=== PATIENT | male | born 1955 | race Caucasian/White ===

== ENCOUNTER 2017-09-26 17:44 | Inpatient (IN) | payer BC ==
--- NOTE | 2017-09-26 17:47 | PDOC ---
Rapid Medical Evaluation Time Seen by Provider: 09/26/17 17:46 Medical Evaluation: Allergies Allergy/AdvReac Type Severity Reaction Status Date / Time No Known Allergies Allergy Verified 09/26/17 17:47 09/26/17 17:47 62 year old male history of anemia (previously on iron), former smoker, hiatal hernia presenting with dyspnea, found to have Hgb 6.2 on outpatient labs. Denies hematochezia, other abnormal bleeding. Sent for admission to Dr. Metz with consult for Dr. Velásquez for endoscopy. Alert, oriented, no distress. RRR, S1/S2. Lungs CTAB. Plan: -EKG -CXR -Labs including CBC, T&S -To Main ED for further evaluation
--- NOTE | 2017-09-26 18:22 | PDOC ---
*Physical Exam - Vital Signs Last Vital Signs Temp Pulse Resp BP Pulse Ox 98.9 F 87 16 133/82 99 09/26/17 17:48 09/26/17 17:48 09/26/17 17:48 09/26/17 17:48 09/26/17 17:48 - Physical Exam Comments: 09/26/17 18:22 The patient was examined by [FREDIS Barajas] under my direct supervision. I personally evaluated the patient. I concur with the above findings and the plan of care. ED Treatment Course - LABORATORY CBC & Chemistry Diagram: 09/28/17 05:35 09/28/17 05:35 *DC/Admit/Observation/Transfer Diagnosis at time of Disposition: Anemia, Blood transfusion during current hospitalization - Discharge Dispostion Disposition: HOME Condition at time of disposition: Improved - Referrals - Patient Instructions - Post Discharge Activity
--- NOTE | 2017-09-26 18:28 | PDOC ---
History of Present Illness - General Chief Complaint: Blood Transfusion Stated Complaint: PCP SENT Time Seen by Provider: 09/26/17 17:46 History Source: Patient Exam Limitations: No Limitations - History of Present Illness Initial Comments: 09/26/17 18:28 Patient is a 62-year-old male with past medical history of iron deficiency anemia, who presents to the emergency department today after receiving a phone call from his primary care doctor that he had a low blood count. Patient states that he has been feeling short of breath recently and cannot walk more than 10 feet without getting short of breath. Denies hematochezia, melena, palpitations , fevers, chills, nausea, vomiting and diarrhea. Past History - Travel Traveled outside of the country in the last 30 days: No Close contact w/someone who was outside of country & ill: No - Past Medical History Allergies/Adverse Reactions: Allergies Allergy/AdvReac Type Severity Reaction Status Date / Time No Known Allergies Allergy Verified 09/26/17 17:47 Home Medications: Ambulatory Orders Omeprazole 40 mg PO DAILY 09/26/17 Anemia: Yes COPD: No - Suicide/Smoking/Psychosocial Hx Smoking History: Former smoker Have you smoked in the past 12 months: No If you are a former smoker, when did you quit?: 1991 Information on smoking cessation initiated: No Hx Alcohol Use: No Drug/Substance Use Hx: No Substance Use Type: None Review of Systems - Review of Systems Able to Perform ROS?: Yes Comments:: 09/26/17 18:36 CONSTITUTIONAL: Absent: fever, chills, diaphoresis, generalized weakness, malaise, loss of appetite HEENT: Absent: rhinorrhea, nasal congestion, throat pain, throat swelling, difficulty swallowing, mouth swelling, ear pain, eye pain, visual Changes CARDIOVASCULAR: Absent: chest pain, loss of consciousness, palpitations, irregular heart rate, peripheral edema RESPIRATORY: Present: shortness of breath Absent: cough, dyspnea with exertion, orthopnea, wheezing, stridor, hemoptysis GASTROINTESTINAL: Absent: abdominal pain, abdominal distension, nausea, vomiting, diarrhea, constipation, melena, hematochezia GENITOURINARY: Absent: dysuria, frequency, urgency, hesitancy, hematuria, flank pain, genital pain MUSCULOSKELETAL: Absent: myalgia, arthralgia, joint swelling SKIN: Absent: rash, itching, pallor HEMATOLOGIC/IMMUNOLOGIC: Present: iron deficiency anemia Absent: easy bleeding, easy bruising, lymphadenopathy, frequent infections ENDOCRINE: Absent: unexplained weight gain, unexplained weight loss, heat intolerance, cold intolerance NEUROLOGIC: Absent: headache, focal weakness or paresthesias, dizziness, unsteady gait, seizure, mental status changes, bladder or bowel incontinence PSYCHIATRIC: Absent: anxiety, depression, suicidal or homicidal ideation, hallucinations. Is the patient limited Occitan proficient: No *Physical Exam - Vital Signs Last Vital Signs Temp Pulse Resp BP Pulse Ox 98.9 F 87 16 133/82 99 09/26/17 17:48 09/26/17 17:48 09/26/17 17:48 09/26/17 17:48 09/26/17 17:48 - Physical Exam Comments: 09/26/17 18:41 GENERAL: Well developed, well nourished. Awake and alert. No acute distress. HEENT: Normocephalic, atraumatic. PERRLA, EOMI. Conjunctival pallor. Sclera are non- icteric. Moist mucous membranes. Oropharynx is clear. NECK: Supple. Full ROM. No JVD. Carotid pulses 2+ and symmetric, without bruits. No thyromegaly. No lymphadenopathy. CARDIOVASCULAR: Regular rate and rhythm. No murmurs, rubs, or gallops. Distal pulses are 2+ and symmetric. PULMONARY: No evidence of respiratory distress. Lungs clear to auscultation bilaterally. No wheezing, rales or rhonchi. ABDOMINAL: Soft. Non-tender. Non-distended. No rebound or guarding. No organomegaly. Normoactive bowel sounds. MUSCULOSKELETAL Normal range of motion at all joints. No bony deformities or tenderness. No CVA tenderness. EXTREMITIES: No cyanosis. No clubbing. No edema. No calf tenderness. SKIN: Pale Warm and dry. Normal capillary refill. No rashes. No jaundice. NEUROLOGICAL: Alert, awake, appropriate. Cranial nerves 2-12 intact. No deficits to light touch and temperature in face, upper extremities and lower extremities. No motor deficits in the in face, upper extremities and lower extremities. Normoreflexic in the upper and lower extremities. Normal speech. Toes are down- going bilaterally. Gait is normal without ataxia. PSYCHIATRIC: Cooperative. Good eye contact. Appropriate mood and affect. ED Treatment Course - LABORATORY CBC & Chemistry Diagram: 09/27/17 06:30 09/26/17 18:35 Medical Decision Making - Medical Decision Making 09/26/17 18:41 Patient is a 62-year-old male past medical history of iron deficiency anemia, who presents emergency Department with low H&H as reported by his primary care doctor. Reported H&H is 6.2. Presuming patient is going to need at least two transfusions. Dr. Marshall would like Dr. Metz for admission and Dr. Ceron for GI consult. Patient is currently pending labs, CXR, stool occult blood. Sign out given Jing Duron NP 09/26/17 18:56 EKG: Rate 87 bpm normal sinus rhythm. Normal intervals normal axis. No acute ST- T wave changes. *DC/Admit/Observation/Transfer Diagnosis at time of Disposition: Blood transfusion during current hospitalization Anemia Qualifiers: Anemia type: folate deficiency Folate deficiency anemia type: unspecified folate deficiency Qualified Code(s): D52.9 - Folate deficiency anemia, unspecified - Referrals - Patient Instructions - Post Discharge Activity
[2017-09-26 18:52] LABS: EOS % 1.4 % (0-4.5); HEMATOCRIT 18.7 % (35.4-49); LYMPH % 33.5 % (8-40); MCHC 30.8 g/dl (32.0-35.9); MEAN CELL VOLUME 53.5 fl (80-96); MEAN PLT VOLUME 8.7 fl (7.5-11.1); MONO % 10.4 % (3.8-10.2); NEUT % 53.7 % (42.8-82.8); PLATELET COUNT 331 K/MM3 (134-434); RBC 3.49 M/mm3 (4.00-5.60); RDW 20.5 % (11.9-15.9); WHITE BLOOD COUNT 6.1 K/mm3 (4.0-10.0)
[2017-09-26 18:55] LABS: ADD RBC MORPHOLOGY YES; MCH 16.5 pg (25.7-33.7)
[2017-09-26 18:57] LABS: HEMOGLOBIN 5.8 GM/dL (11.7-16.9)
[2017-09-26 19:11] LABS: INR 1.05 (0.82-1.09); PROTHROMBIN TIME (PATIENT) 11.9 SEC (9.7-13.0)
--- NOTE | 2017-09-26 19:12 | PDOC ---
*Physical Exam - Vital Signs Last Vital Signs Temp Pulse Resp BP Pulse Ox 98.9 F 87 16 133/82 99 09/26/17 17:48 09/26/17 17:48 09/26/17 17:48 09/26/17 17:48 09/26/17 17:48 - Physical Exam General Appearance: Yes: Appropriately Dressed Respiratory/Chest: positive: Lungs Clear Cardiovascular: positive: Regular Rate, Systolic Murmur Gastrointestinal/Abdominal: positive: Normal Bowel Sounds, Soft Extremity: positive: Normal Capillary Refill, Normal Inspection Integumentary: positive: Dry, Warm, Pale Neurologic: positive: Fully Oriented, Alert ED Treatment Course - LABORATORY CBC & Chemistry Diagram: 09/26/17 18:35 09/26/17 18:35 - ADDITIONAL ORDERS Additional order review: Laboratory Results 09/26/17 09/26/17 18:50 18:35 Stool Occult Blood Negative Crossmatch See Detail 09/26/17 18:35 RBC 3.49 L MCV 53.5 L MCHC 30.8 L RDW 20.5 H MPV 8.7 Neutrophils % 53.7 Lymphocytes % 33.5 Monocytes % 10.4 H Eosinophils % 1.4 Basophils % 1.0 Medical Decision Making - Medical Decision Making 09/26/17 20:24 Patient signed out to Dr. Govea. patient to be placed under observation status *DC/Admit/Observation/Transfer Diagnosis at time of Disposition: Blood transfusion during current hospitalization Anemia Qualifiers: Anemia type: folate deficiency Folate deficiency anemia type: unspecified folate deficiency Qualified Code(s): D52.9 - Folate deficiency anemia, unspecified - Discharge Dispostion Admit: Yes - Referrals Referrals: Mumtaz Marshall MD [Primary Care Provider] - - Patient Instructions - Post Discharge Activity
[2017-09-26 19:28] LABS: ALBUMIN 3.3 g/dl (3.4-5.0); ALK PHOS 64 U/L (45-117); ANION GAP 6 (8-16); BILIRUBIN,TOTAL 0.2 mg/dL (0.2-1.0); BLOOD UREA NITROGEN 25 mg/dL (7-18); CALCIUM 8.7 mg/dL (8.5-10.1); CHLORIDE 112 mmol/L (98-107); CO2 25 mmol/L (21-32); CREATININE 1.3 mg/dL (0.7-1.3); GLUCOSE,RANDOM 126 mg/dL (74-106); POTASSIUM 4.3 mmol/L (3.5-5.1); SGOT/AST 21 U/L (15-37); SGPT/ALT 22 U/L (12-78); SODIUM 143 mmol/L (136-145)
[2017-09-26 20:13] LABS: ANISOCYTOSIS 1+; PLATELET ESTIMATE ADEQUATE
--- NOTE | 2017-09-26 21:07 | HP ---
CHIEF COMPLAINT: SOB, Weakness PCP: Dr. Mumtaz Marshall HISTORY OF PRESENT ILLNESS: This is a 62 y/o man with a PMH: Iron Deficiency Anemia, GERD. Who presents to the ED sent in by PCP for Hgb 6.2. Patient reports having SOB, weakness x6-8 months, worse over the last several days. His reports that the patient is non-compliant with taking his iron supplements and vitamins. Patient denies melena, hematochezia, hematemesis, hematuria. Patient denies fever, chills, cough, CP, palpitations, AP, N/V/D, constipation, dysuria. ER course was notable for: (1) Hgb 5.8 (2) BUN 25 (3) EKG- nSR no ST or TWI Recent Travel: None PAST MEDICAL HISTORY: See HPI PAST SURGICAL HISTORY: Hemorrhoidectomy Social History: Smoking: Former Alcohol: None Drugs: None Lives with spouse Family History: Both parents alive and well Allergies No Known Allergies Allergy (Verified 09/26/17 17:47) HOME MEDICATIONS: Home Medications Medication Instructions Recorded Omeprazole 20 mg PO DAILY 09/26/17 REVIEW OF SYSTEMS CONSTITUTIONAL: generalized weakness, malaise Absent: fever, chills, diaphoresis, loss of appetite, weight change HEENT: Absent: rhinorrhea, nasal congestion, throat pain, throat swelling, difficulty swallowing, mouth swelling, ear pain, eye pain, visual changes CARDIOVASCULAR: Absent: chest pain, syncope, palpitations, irregular heart rate, lightheadedness , peripheral edema RESPIRATORY: shortness of breath, dyspnea with exertion Absent: cough, orthopnea, wheezing, stridor, hemoptysis GASTROINTESTINAL: Absent: abdominal pain, abdominal distension, nausea, vomiting, diarrhea, constipation, melena, hematochezia GENITOURINARY: Absent: dysuria, frequency, urgency, hesitancy, hematuria, flank pain, genital pain MUSCULOSKELETAL: Absent: myalgia, arthralgia, joint swelling, back pain, neck pain SKIN: Absent: rash, itching, pallor HEMATOLOGIC/IMMUNOLOGIC: Absent: easy bleeding, easy bruising, lymphadenopathy, frequent infections ENDOCRINE: Absent: unexplained weight gain, unexplained weight loss, heat intolerance, cold intolerance NEUROLOGIC: Absent: headache, focal weakness or paresthesias, dizziness, unsteady gait, seizure, mental status changes, bladder or bowel incontinence PSYCHIATRIC: Absent: anxiety, depression, suicidal or homicidal ideation, hallucinations. PHYSICAL EXAMINATION Vital Signs - 24 hr 09/26/17 17:48 Temperature 98.9 F Pulse Rate 87 Respiratory 16 Rate Blood Pressure 133/82 O2 Sat by Pulse 99 Oximetry (%) GENERAL: Awake, alert, and fully oriented, in no acute distress. HEAD: Normal with no signs of trauma. EYES: Pupils equal, round and reactive to light, extraocular movements intact, sclera anicteric, conjunctiva pale, clear. No lid lag. EARS, NOSE, THROAT: Ears normal, nares patent, oropharynx clear without exudates. Moist mucous membranes. NECK: Normal range of motion, supple without lymphadenopathy, JVD, or masses. LUNGS: Breath sounds equal, clear to auscultation bilaterally. No wheezes, and no crackles. No accessory muscle use. HEART: Regular rate and rhythm, normal S1 and S2 without murmur, rub or gallop. ABDOMEN: Soft, nontender, not distended, normoactive bowel sounds, no guarding, no rebound, no masses. No hepatomegaly or splenomegaly. MUSCULOSKELETAL: Normal range of motion at all joints. No bony deformities or tenderness. No CVA tenderness. UPPER EXTREMITIES: 2+ pulses, warm, well-perfused. No cyanosis. No clubbing. No peripheral edema. LOWER EXTREMITIES: 2+ pulses, warm, well-perfused. No calf tenderness. No peripheral edema. NEUROLOGICAL: Cranial nerves II-XII intact. Normal speech. Gait not observed. PSYCHIATRIC: Cooperative. Good eye contact. Appropriate mood and affect. SKIN: Pallor, Warm, dry, normal turgor, no rashes or lesions noted, normal capillary refill. Laboratory Results - last 24 hr 09/26/17 09/26/17 09/26/17 18:35 18:35 18:35 WBC 6.1 RBC 3.49 L Hgb 5.8 L* Hct 18.7 L MCV 53.5 L MCH 16.5 L MCHC 30.8 L RDW 20.5 H Plt Count 331 MPV 8.7 Neutrophils % 53.7 Lymphocytes % 33.5 Monocytes % 10.4 H Eosinophils % 1.4 Basophils % 1.0 Hypochromia 3+ Platelet Estimate Adequate Anisocytosis 1+ Microcytosis 3+ PT with INR 11.90 INR 1.05 Sodium 143 Potassium 4.3 Chloride 112 H Carbon Dioxide 25 Anion Gap 6 L BUN 25 H Creatinine 1.3 Creat Clearance w eGFR 55.94 Random Glucose 126 H Calcium 8.7 Ferritin Total Bilirubin 0.2 AST 21 ALT 22 Alkaline Phosphatase 64 Troponin I Total Protein 7.0 Albumin 3.3 L Vitamin B12 Stool Occult Blood Blood Type Antibody Screen Crossmatch 09/26/17 09/26/17 09/26/17 18:35 18:35 18:35 WBC RBC Hgb Hct MCV MCH MCHC RDW Plt Count MPV Neutrophils % Lymphocytes % Monocytes % Eosinophils % Basophils % Hypochromia Platelet Estimate Anisocytosis Microcytosis PT with INR INR Sodium Potassium Chloride Carbon Dioxide Anion Gap BUN Creatinine Creat Clearance w eGFR Random Glucose Calcium Ferritin 1.902 L Total Bilirubin AST ALT Alkaline Phosphatase Troponin I < 0.02 Total Protein Albumin Vitamin B12 163 L Stool Occult Blood Blood Type O POSITIVE Antibody Screen Negative Crossmatch See Detail 09/26/17 18:50 WBC RBC Hgb Hct MCV MCH MCHC RDW Plt Count MPV Neutrophils % Lymphocytes % Monocytes % Eosinophils % Basophils % Hypochromia Platelet Estimate Anisocytosis Microcytosis PT with INR INR Sodium Potassium Chloride Carbon Dioxide Anion Gap BUN Creatinine Creat Clearance w eGFR Random Glucose Calcium Ferritin Total Bilirubin AST ALT Alkaline Phosphatase Troponin I Total Protein Albumin Vitamin B12 Stool Occult Blood Negative Blood Type Antibody Screen Crossmatch ASSESSMENT/PLAN: This is a 62 y/o man with a PMH: CYNTHIA, GERD, Hiatal Hernia. Placed in Observation for Symptomatic Anemia. Problem List - Problem (1) Anemia Assessment/Plan: - Likely secondary to non-compliance vs tumor - Hgb 5.8 - Will receive PRBCs tonight - Repeat CBC in am - FE, TIBC, Ferritin levels-pending - Stool Occult-negative - Appreciate GI Consult - NPO - Gentle IVF - f/u with Hematology outpatient - Patient counseled on importance of taking Iron, vitamins, patient is amendable - Monitor vitals Code(s): D64.9 - ANEMIA, UNSPECIFIED Qualifiers: Anemia type: folate deficiency Folate deficiency anemia type: unspecified folate deficiency Qualified Code(s): D52.9 - Folate deficiency anemia, unspecified (2) SOB (shortness of breath) Assessment/Plan: - Likely secondary to Anemia - Will transfuse tonight - O2 - Monitor vitals Code(s): R06.02 - SHORTNESS OF BREATH (3) Blood transfusion during current hospitalization Assessment/Plan: - hx CYNTHIA, non-compliant - Hgb 5.8 - Will need PRBCs - Repeat CBC in am Code(s): [id number] - (4) GERD (gastroesophageal reflux disease) Assessment/Plan: - Stable - Continue Omeprazole Code(s): K21.9 - GASTRO-ESOPHAGEAL REFLUX DISEASE WITHOUT ESOPHAGITIS (5) DVT prophylaxis Assessment/Plan: - OOB - SCDs - Hold AC 06/29 Anemia Code(s): [id number] - Visit type - Emergency Visit Emergency Visit: Yes ED Registration Date: 09/26/17 Care time: The patient presented to the Emergency Department on the above date and was hospitalized for further evaluation of their emergent condition. - New Patient This patient is new to me today: Yes Date on this admission: 09/26/17 - Critical Care Critical Care patient: No Hospitalist Screening - Colonoscopy Questionnaire Colonoscopy Questionnaire: Colonoscopy Questionnaire - Patient: 50 - 75 years old and never had a screening colonoscopy: No History of colon or rectal polyps, or CA: No History of IBD, Crohn's disease or UC: No History of abdominal radiation therapy as a child: No - Relative: 1 with colon or rectal CA, or polyps at age 60 or younger: Unknown Colon or rectal CA diagnosed at age 45 or younger: Unknown Multiple relatives with colon or rectal CA: Unknown - Outcome: Screening Result: Negative Screen
[2017-09-27] MEDS ORDERED: PANTOPRAZOLE 40 MG TABLET (FP) PO ONE (00:07)
[2017-09-27 04:47] VITALS: BMI 26.6
[2017-09-27] MEDS ORDERED: DEXTROSE 5%-0.45% SALINE 1,000 ML IV SCH (06:45)
[2017-09-27 07:47] LABS: HEMATOCRIT 24.6 % (35.4-49); HEMOGLOBIN 7.8 GM/dL (11.7-16.9); MCHC 31.7 g/dl (32.0-35.9); MEAN CELL VOLUME 58.8 fl (80-96); MEAN PLT VOLUME 8.4 fl (7.5-11.1); PLATELET COUNT 282 K/MM3 (134-434); RBC 4.18 M/mm3 (4.00-5.60); RDW 27.1 % (11.9-15.9); WHITE BLOOD COUNT 7.2 K/mm3 (4.0-10.0)
[2017-09-27 07:55] LABS: MCH 18.6 pg (25.7-33.7)
[2017-09-27 07:58] LABS: ANION GAP 9 (8-16); BLOOD UREA NITROGEN 23 mg/dL (7-18); CALCIUM 8.8 mg/dL (8.5-10.1); CHLORIDE 111 mmol/L (98-107); CO2 22 mmol/L (21-32); CREATININE 1.1 mg/dL (0.7-1.3); GLUCOSE,RANDOM 91 mg/dL (74-106); POTASSIUM 4.2 mmol/L (3.5-5.1); SODIUM 142 mmol/L (136-145)
--- NOTE | 2017-09-27 09:12 | PN ---
Progress Note, Physician - Current Medication List Current Medications: Active Medications Dextrose/Sodium Chloride (D5-1/2ns -) 1,000 mls @ 75 mls/hr IV ASDIR GREYSON Last Admin: 09/27/17 07:39 Dose: 75 mls/hr - Objective Vital Signs: Vital Signs Temperature 98.8 F 09/27/17 04:30 Pulse Rate 79 09/27/17 04:30 Respiratory Rate 18 09/27/17 04:30 Blood Pressure 138/91 09/27/17 04:30 O2 Sat by Pulse Oximetry (%) 99 09/26/17 23:50 Labs: CBC, BMP 09/27/17 06:30 09/27/17 06:30 INR, PTT INR 1.05 (0.82-1.09) 09/26/17 18:35 Problem List - Problems (1) Anemia Assessment/Plan: - Likely secondary to non-compliance vs tumor - Hgb 5.8 - Will receive PRBCs - Repeat CBC in am - FE, TIBC, Ferritin levels-pending - Stool Occult-negative - Appreciate GI Consult - NPO - Gentle IVF - f/u with Hematology - Patient counseled on importance of taking Iron, vitamins, patient is amendable - Monitor vitals Code(s): D64.9 - ANEMIA, UNSPECIFIED Qualifiers: Anemia type: folate deficiency Folate deficiency anemia type: unspecified folate deficiency Qualified Code(s): D52.9 - Folate deficiency anemia, unspecified (2) DVT prophylaxis Assessment/Plan: - OOB - SCDs - Hold AC 2/2 Anemia Code(s): [id number] - (3) GERD (gastroesophageal reflux disease) Assessment/Plan: - Stable - PPI Code(s): K21.9 - GASTRO-ESOPHAGEAL REFLUX DISEASE WITHOUT ESOPHAGITIS (4) SOB (shortness of breath) Assessment/Plan: - Likely secondary to Anemia - Will transfuse tonight - O2 - Monitor vitals - Echo Code(s): R06.02 - SHORTNESS OF BREATH
[2017-09-27 09:23] LABS: ANISOCYTOSIS 3+; OVALOCYTE 2+; PLATELET ESTIMATE NORMAL; TEAR DROP CELLS 2+
--- NOTE | 2017-09-27 09:46 | CONSULT ---
Consult Consult Specialty:: Hematology - History of Present Illness History of Present Illness: 62-year-old male with past medical history of iron deficiency anemia, who presents to the emergency department today after receiving a phone call from his primary care doctor that he had a low hgb Hematology consulted for anemia. Pt seen and examined. - History Source History Provided By: Patient, Medical Record - Alcohol/Substance Use Hx Alcohol Use: No - Smoking History Smoking history: Former smoker Have you smoked in the past 12 months: No If you are a former smoker, when did you quit?: 1991 Home Medications - Allergies Allergies/Adverse Reactions: Allergies Allergy/AdvReac Type Severity Reaction Status Date / Time No Known Allergies Allergy Verified 09/26/17 17:47 - Home Medications Home Medications: Ambulatory Orders Omeprazole 40 mg PO DAILY 09/26/17 Physical Exam Vital Signs: Vital Signs Temperature 98.8 F 09/27/17 04:30 Pulse Rate 79 09/27/17 04:30 Respiratory Rate 18 09/27/17 04:30 Blood Pressure 138/91 09/27/17 04:30 O2 Sat by Pulse Oximetry (%) 99 09/26/17 23:50 Constitutional: Yes: Well Nourished, No Distress, Calm Eyes: Yes: Conjunctiva Clear HENT: Yes: Atraumatic, Normocephalic Neck: Yes: Supple, Trachea Midline Cardiovascular: Yes: Regular Rate and Rhythm Respiratory: Yes: Regular, CTA Bilaterally Gastrointestinal: Yes: Normal Bowel Sounds, Soft, Abdomen, Obese Edema: No Integumentary: Yes: WNL Labs: CBC, BMP 09/27/17 06:30 09/27/17 06:30 Assessment/Plan Severe Chronic Iron deficiency ( Microcytic/Ferritin of one, FOBT negative) GI f/u MCV in 50s, likely may have a component of hemoglobinopathy for routine anemia w/u PRBCs, post PRBCs, can give Venofer LOS.
--- NOTE | 2017-09-27 11:28 | EKG ---
Test Reason : Blood Pressure : / mmHG Vent. Rate : 087 BPM Atrial Rate : 087 BPM P-R Int : 150 ms QRS Dur : 070 ms QT Int : 328 ms P-R-T Axes : 060 034 049 degrees QTc Int : 394 ms NORMAL SINUS RHYTHM NORMAL ECG WHEN COMPARED WITH ECG OF 11-AUG-2010 09:05, NO SIGNIFICANT CHANGE WAS FOUND Confirmed by DEIRDRE CHAVEZ MD ([id number]) on 09/27/2017 11:27:57 AM Referred By: Confirmed By:EDIRDRE CHAVEZ MD
[2017-09-27] MEDS: PANTOPRAZOLE SODIUM 40 MG VIAL IVPUSH SCH ×2 (14:04→21:41)
--- NOTE | 2017-09-27 18:48 | CON.GI ---
Consult Consult Specialty:: GI Referred by:: Victor Hugo Metz/Loren Marshall - History of Present Illness History of Present Illness: Patient known to me. Patient has chronic anemia. Patient has large hiatal hernia which could be causing obscure gi bleeding. He was suppose to have an upper endoscopy as an outpatient and repeat colonoscopy. He received 4 units of PRBC. There was no history of melena and rectal bleeding. - Alcohol/Substance Use Hx Alcohol Use: No - Smoking History Smoking history: Former smoker Have you smoked in the past 12 months: No If you are a former smoker, when did you quit?: 1991 Home Medications - Allergies Allergies/Adverse Reactions: Allergies Allergy/AdvReac Type Severity Reaction Status Date / Time No Known Allergies Allergy Verified 09/26/17 17:47 - Home Medications Home Medications: Ambulatory Orders Omeprazole 40 mg PO DAILY 09/26/17 Physical Exam-GI Vital Signs: Vital Signs Temperature 98.5 F 09/27/17 16:28 Pulse Rate 76 09/27/17 16:28 Respiratory Rate 22 09/27/17 16:28 Blood Pressure 130/84 09/27/17 16:28 O2 Sat by Pulse Oximetry (%) 99 09/27/17 13:00 Constitutional: Yes: Well Nourished Eyes: Yes: Conjunctiva Clear HENT: Yes: Atraumatic Neck: Yes: Supple Cardiovascular: Yes: Regular Rate and Rhythm Respiratory: Yes: CTA Bilaterally ...Palpate: Yes: Soft. No: Firm/Rigid, Guarding, Hepatomegaly, Mass, Pulsatile Mass, Splenomegaly, Tenderness, Tenderness, Epigastium Labs: CBC, BMP 09/27/17 06:30 09/27/17 06:30 INR, PTT INR 1.05 (0.82-1.09) 09/26/17 18:35 Problem List - Problems (1) Anemia Assessment/Plan: R> for gi work-up as an outpatient patient was made aware to follow up in am Code(s): D64.9 - ANEMIA, UNSPECIFIED Qualifiers: Anemia type: folate deficiency Folate deficiency anemia type: unspecified folate deficiency Qualified Code(s): D52.9 - Folate deficiency anemia, unspecified (2) GERD (gastroesophageal reflux disease) Code(s): K21.9 - GASTRO-ESOPHAGEAL REFLUX DISEASE WITHOUT ESOPHAGITIS
[2017-09-28 07:26] LABS: HEMATOCRIT 31.2 % (35.4-49); HEMOGLOBIN 10.2 GM/dL (11.7-16.9); MCH 20.4 pg (25.7-33.7); MCHC 32.7 g/dl (32.0-35.9); MEAN CELL VOLUME 62.4 fl (80-96); MEAN PLT VOLUME 8.5 fl (7.5-11.1); PLATELET COUNT 291 K/MM3 (134-434); RDW 30.9 % (11.9-15.9); WHITE BLOOD COUNT 6.9 K/mm3 (4.0-10.0)
[2017-09-28 07:38] LABS: ALBUMIN 3.3 g/dl (3.4-5.0); ANION GAP 10 (8-16); BILIRUBIN,TOTAL 0.6 mg/dL (0.2-1.0); BLOOD UREA NITROGEN 17 mg/dL (7-18); CALCIUM 8.5 mg/dL (8.5-10.1); CHLORIDE 108 mmol/L (98-107); CO2 23 mmol/L (21-32); CREATININE 1.2 mg/dL (0.7-1.3); GLUCOSE,RANDOM 92 mg/dL (74-106); LDH 138 U/L (87-241); POTASSIUM 4.1 mmol/L (3.5-5.1); SGOT/AST 16 U/L (15-37); SGPT/ALT 18 U/L (12-78); SODIUM 141 mmol/L (136-145); TOT PROT 7.1 g/dl (6.4-8.2)
[2017-09-28 07:49] LABS: ALK PHOS 51 U/L (45-117)
[2017-09-28 08:09] LABS: SERUM IRON SATURATION 3 % (15-55); TOTAL IRON BINDING CAPACITY 396 ug/dL (250-450); UIBC 386 ug/dL (111-343)
--- NOTE | 2017-09-28 08:32 | DS ---
Physical Examination Vital Signs: Vital Signs Temperature 98.6 F 09/28/17 06:00 Pulse Rate 68 09/28/17 06:00 Respiratory Rate 18 09/28/17 06:00 Blood Pressure 120/82 09/28/17 06:00 O2 Sat by Pulse Oximetry (%) 95 09/28/17 05:00 Findings/Remarks: This is a 62 y/o man with a PMH: Iron Deficiency Anemia, GERD. Who presents to the ED sent in by PCP for Hgb 6.2. Patient reports having SOB, weakness x6-8 months, worse over the last several days. His reports that the patient is non-compliant with taking his iron supplements and vitamins. Patient denies melena, hematochezia, hematemesis, hematuria. Patient denies fever, chills, cough, CP, palpitations, AP, N/V/D, constipation, dysuria. ER course was notable for: (1) Hgb 5.8 (2) BUN 25 (3) EKG- nSR no ST or TWI Cardiovascular: Yes: Regular Rate and Rhythm Respiratory: Yes: Regular, CTA Bilaterally Gastrointestinal: Yes: Normal Bowel Sounds, Soft. No: Tenderness Labs: CBC, BMP 09/28/17 05:35 09/28/17 05:35 Discharge Summary Reason For Visit: TRANSFUSION OF BLOOD DURING CURRENT Current Active Problems Anemia (Acute) Blood transfusion during current hospitalization (Acute) DVT prophylaxis (Acute) GERD (gastroesophageal reflux disease) (Acute) SOB (shortness of breath) (Acute) Hospital Course: - Problems (1) Anemia Assessment/Plan: - Likely secondary to non-compliance vs tumor - Hgb 5.8--10 - S/P PRBCs - FE, TIBC, Ferritin levels- - Stool Occult-negative - Appreciate GI Consult - Gentle IVF - f/u with Hematology and gi as outpatient - Patient counseled on importance of taking Iron, vitamins, patient is amendable - Monitor vitals - Ct scan NAD Code(s): D64.9 - ANEMIA, UNSPECIFIED Qualifiers: Anemia type: folate deficiency Folate deficiency anemia type: unspecified folate deficiency Qualified Code(s): D52.9 - Folate deficiency anemia, unspecified (2) DVT prophylaxis Assessment/Plan: - OOB - SCDs - Hold AC 2/ Anemia Code(s): [id number] - (3) GERD (gastroesophageal reflux disease) Assessment/Plan: - Stable - PPI Code(s): K21.9 - GASTRO-ESOPHAGEAL REFLUX DISEASE WITHOUT ESOPHAGITIS (4) SOB (shortness of breath) Assessment/Plan: - Likely secondary to Anemia - Will transfuse tonight - O2 - Monitor vitals - Echo noted Code(s): R06.02 - SHORTNESS OF BREATH Condition: Improved - Instructions Referrals: Mumtaz Marshall MD [Primary Care Provider] - 1 Week Disposition: HOME - Home Medications Comprehensive Discharge Medication List: Ambulatory Orders Omeprazole 40 mg PO DAILY 09/26/17
[2017-09-28 08:59] LABS: PLATELET ESTIMATE NORMAL
[2017-09-28 09:13] VITALS: BP 143/84; PULSE 82; TEMP 98.8
[2017-09-28] MEDS ORDERED: PANTOPRAZOLE 40 MG TABLET (FP) PO SCH (10:00)
[2017-10-01 10:09] LABS: HGB SOLUBILITY Negative (Negative); Hgb A 98.2 % (96.4-98.8); Hgb C 0 % (0.0); Hgb F 0 % (0.0-2.0); Hgb S 0 % (0.0)
== END 2017-09-28 09:33 | disposition home or self-care (01) | DRG 812 ==
LOC: JER 17:44 → JERBED 20:26 → J8W 09-27 00:09 → OBSVTOIN 09-27 17:29
PROVIDERS: ADMIT Internal Medicine; ATTEND Family Medicine
PROC: 30233N1 Transfusion of Nonautologous Red Blood Cells into Peripheral Vein, Percutaneous Approach (ICD-10-PCS; principal; 2017-09-26)
DX: D50.9 Iron deficiency anemia, unspecified (principal); K44.9 Diaphragmatic hernia without obstruction or gangrene; K21.9 Gastro-esophageal reflux disease without esophagitis; Z87.891 Personal history of nicotine dependence; E66.8 Other obesity; Z68.26 Body mass index [BMI] 26.0-26.9, adult
CPT/HCPCS: 36415; 36430; 71046-TC-FY; 71260-TC; 74177-TC; 80048; 80053; 82272; 82607; 82728; 82746; 82747; 82784; 83021; 83540; 83550; 83615; 84155; 84165; 84484; 85014; 85025; 85044; 85610; 85660; 86334; 86850; 86900; 86901; 86922; 93005; 93010; 93306-TC; 99284-25; G0378; P9038; P9058

== ENCOUNTER 2022-10-12 16:53 | Observation (INO) | payer BC ==
[2022-10-12 18:04] LABS: BASO % 0.5 % (0-2.0); EOS % 2.2 % (0-4.5); HEMATOCRIT 23.4 % (35.4-49); LYMPH % 27.5 % (8-40); MCHC 29.1 g/dl (32.0-35.9); MEAN CELL VOLUME 60.6 fl (80-96); MONO % 12.2 % (3.8-10.2); NEUT % 57.6 % (42.8-82.8); PLATELET COUNT 338 10^3/uL (134-434); RBC 3.87 M/mm3 (4.00-5.60); RDW 20.5 % (11.9-15.9); WHITE BLOOD COUNT 6.7 K/mm3 (4.0-10.0)
[2022-10-12 18:12] LABS: MCH 17.7 pg (25.7-33.7)
[2022-10-12 18:13] LABS: INR 1.03 (0.83-1.09)
[2022-10-12 18:14] LABS: HEMOGLOBIN 6.8 GM/dL (11.7-16.9)
[2022-10-12 18:15] LABS: ACTIVATED PTT 30.9 SECONDS (25.2-36.5)
[2022-10-12 18:16] LABS: POTASSIUM 4.5 mmol/L (3.5-5.1)
[2022-10-12 18:18] LABS: ALBUMIN 3.3 g/dl (3.4-5.0); CALCIUM 9.6 mg/dL (8.5-10.1)
[2022-10-12 18:21] LABS: CREATININE 1.1 mg/dL (0.55-1.3)
[2022-10-12 18:23] LABS: BILIRUBIN,TOTAL 0.2 mg/dL (0.2-1); TOT PROT 7.1 g/dl (6.4-8.2)
[2022-10-12 19:52] LABS: ANISOCYTOSIS 2+; MACROCYTOSIS 1+; OVALOCYTE 1+
[2022-10-12] MEDS ORDERED: ACETAMINOPHEN 325 MG TABLET (FP) PO PRN (20:14)
[2022-10-12] MEDS ORDERED: DOCUSATE SODIUM 100 MG CAPSULE (FP) PO PRN (20:14)
[2022-10-13 01:39] VITALS: BMI 23.0
[2022-10-13 09:32] LABS: BASO % 0.7 % (0-2.0); EOS % 2.4 % (0-4.5); HEMATOCRIT 27.1 % (35.4-49); HEMOGLOBIN 8.6 GM/dL (11.7-16.9); MCHC 31.7 g/dl (32.0-35.9); MEAN PLT VOLUME 8.4 fl (7.5-11.1); NEUT % 60.9 % (42.8-82.8); PLATELET COUNT 298 10^3/uL (134-434); RBC 4.31 M/mm3 (4.00-5.60); RDW 23.7 % (11.9-15.9); WHITE BLOOD COUNT 6.3 K/mm3 (4.0-10.0)
[2022-10-13] MEDS: PANTOPRAZOLE SODIUM 40 MG VIAL IVPUSH SCH ×2 (09:52→21:18)
[2022-10-13 09:53] LABS: POTASSIUM 4.4 mmol/L (3.5-5.1)
[2022-10-13 10:07] LABS: CALCIUM 9.3 mg/dL (8.5-10.1)
[2022-10-13 10:08] LABS: BLOOD UREA NITROGEN 18.4 mg/dL (7-18)
[2022-10-13 10:11] LABS: CREATININE 1.2 mg/dL (0.55-1.3); PHOSPHOROUS 2.8 mg/dL (2.5-4.9)
[2022-10-13] MEDS ORDERED: IRON SUCROSE INJECTION 200 MG in SODIUM CHLORIDE 90 ML IVPB ONE (10:24)
[2022-10-13] MEDS: METOCLOPRAMIDE HCL 10 MG TABLET (FP) PO SCH ×2 (11:31→16:43)
[2022-10-14] MEDS: METOCLOPRAMIDE HCL 10 MG TABLET (FP) PO SCH ×3 (06:49→16:49)
[2022-10-14] MEDS: ASCORBIC ACID 500 MG TABLET (FP) PO SCH (09:44)
[2022-10-14] MEDS: FERROUS SO4 325 MG TABLET (FP) PO SCH ×3 (09:44→16:49)
[2022-10-14] MEDS: PANTOPRAZOLE SODIUM 40 MG VIAL IVPUSH SCH ×2 (09:44→21:20)
[2022-10-14] MEDS ORDERED: IRON SUCROSE INJECTION 200 MG in SODIUM CHLORIDE 90 ML IVPB ONE (11:30)
[2022-10-15] MEDS: METOCLOPRAMIDE HCL 10 MG TABLET (FP) PO SCH ×2 (06:18→12:21)
[2022-10-15 06:22] VITALS: RESP 18
[2022-10-15] MEDS: ASCORBIC ACID 500 MG TABLET (FP) PO SCH ×2 (08:23→09:17)
[2022-10-15] MEDS: FERROUS SO4 325 MG TABLET (FP) PO SCH ×2 (08:23→12:22)
[2022-10-15] MEDS: PANTOPRAZOLE SODIUM 40 MG VIAL IVPUSH SCH ×2 (08:23→09:17)
[2022-10-15 08:24] VITALS: BP 128/71; PULSE 85; TEMP 98.6
[2022-10-15 09:03] LABS: HEMATOCRIT 28.2 % (35.4-49); HEMOGLOBIN 9.1 GM/dL (11.7-16.9); MCH 20.4 pg (25.7-33.7); MCHC 32.2 g/dl (32.0-35.9); MEAN CELL VOLUME 63.4 fl (80-96); MEAN PLT VOLUME 7.9 fl (7.5-11.1); PLATELET COUNT 335 10^3/uL (134-434); RBC 4.46 M/mm3 (4.00-5.60); RDW 24.1 % (11.9-15.9); WHITE BLOOD COUNT 8.3 K/mm3 (4.0-10.0)
[2022-10-15 09:18] LABS: POTASSIUM 4.2 mmol/L (3.5-5.1)
[2022-10-15 09:21] LABS: BLOOD UREA NITROGEN 15.6 mg/dL (7-18); CALCIUM 9.6 mg/dL (8.5-10.1)
[2022-10-15 09:25] LABS: CREATININE 1.2 mg/dL (0.55-1.3)
[2022-10-15] MEDS ORDERED: IRON SUCROSE INJECTION 200 MG in SODIUM CHLORIDE 90 ML IVPB ONE (12:00)
== END 2022-10-15 15:16 | disposition home or self-care (01) ==
LOC: JER 16:53 → JERBED 20:10 → J5S 22:35 → J7W 10-14 10:59
PROVIDERS: ADMIT Internal Medicine; ATTEND Family Medicine
PROC: 30233N1 Transfusion of Nonautologous Red Blood Cells into Peripheral Vein, Percutaneous Approach (ICD-10-PCS; principal; 2022-10-12)
PROC: 3E033GC Introduction of Other Therapeutic Substance into Peripheral Vein, Percutaneous Approach (ICD-10-PCS; 2022-10-12)
DX: D50.9 Iron deficiency anemia, unspecified (principal); K92.1 Melena; K21.9 Gastro-esophageal reflux disease without esophagitis; I10 Essential (primary) hypertension; Z87.891 Personal history of nicotine dependence; K44.9 Diaphragmatic hernia without obstruction or gangrene
CPT/HCPCS: 36415; 36430; 71046-TC-FY; 74177-TC; 80048; 80053; 82272; 82607; 82728; 82746; 83540; 83550; 83735; 84100; 85025; 85027; 85610; 85730; 86850; 86900; 86901; 86922; 93005; 93010; 96365; 96366; 99285-25; C9803-CS; G0378; J1756; P9058; Q9967; U0003; U0005